=== PATIENT | female | born 1985 | race Caucasian/White ===

== ENCOUNTER 2020-09-09 19:15 | Inpatient (IN) | payer BC ==
[2020-09-09] MEDS ORDERED: Butorphanol Tartrate 1 MG/ML VIAL SLOW IVP PRN (20:30)
[2020-09-09] MEDS ORDERED: Promethazine HCl 25 MG/ML VIAL IM PRN (20:30)
[2020-09-09] MEDS ORDERED: Ondansetron PF 4 MG/2 ML Vial IVP PRN (20:30)
[2020-09-09] MEDS ORDERED: Acetaminophen 500 MG TAB PO PRN (20:30)
[2020-09-09] MEDS ORDERED: Ibuprofen 800 MG TAB PO PRN (20:30)
[2020-09-09] MEDS ORDERED: NS / Oxytocin 40 units/1000ml 1,000 ML IV PRN (20:30)
[2020-09-09] MEDS ORDERED: hydrALAZINE 20 MG/ML VIAL SLOW IVP PRN (20:30)
[2020-09-09] MEDS ORDERED: Lidocaine 1% (PF) 30 ML VIAL SC PRN (20:30)
[2020-09-09 21:45] VITALS: BMI 29.9
[2020-09-09] MEDS ORDERED: Misoprostol 100 MCG TAB ONE (21:52)
[2020-09-09 21:53] LABS: Hemoglobin 12.4 g/dL (12.0-15.5); Mean Corpuscular Hemoglobin 29.2 pg (27.0-33.0); Mean Corpuscular Volume 86.1 fl (81.6-98.3); Mean Platelet Volume 10.7 fl (7.4-10.4); Platelet Count 252 10x3/uL (150-450); RBC Distribution Width 13.2 % (11.5-14.5); Red Blood Cell (RBC) Count 4.24 10x6/uL (3.90-5.03); White Blood Cell (WBC) Count 11.5 10x3/uL (3.5-10.5)
[2020-09-09] MEDS ORDERED: Lactated Ringer's 1,000 ML IV SCH (22:00)
[2020-09-09] MEDS ORDERED: Misoprostol 100 MCG TAB PO SCH (22:00)
[2020-09-09 22:27] LABS: Hep B Surf Ag Non-Reactive S/CO (NonReactive)
[2020-09-09 22:28] LABS: Syphilis Antibody Nonreactive (Nonreactive); Syphilis Antibody Index 0.04 S/CO (<1.00 Non-Reactive)
[2020-09-09 23:11] LABS: HBSAg Index 0.16 S/CO (0-0.99)
[2020-09-10] MEDS ORDERED: Fentanyl 4 mcg/Bup 0.1% Cadd 100 ML ONE (01:54)
[2020-09-10] MEDS ORDERED: diphenhydrAMINE 50 MG/ML VIAL IVP PRN (02:45)
[2020-09-10] MEDS ORDERED: Fentanyl 4 mcg/Bupivacaine 0.1% Cassette 100 ML EPIDURAL SCH (02:45)
[2020-09-10] MEDS ORDERED: Hydrocerin (Eucerin) Cream 120 gm Jar TOP PRN (02:45)
[2020-09-10] MEDS ORDERED: Lactated Ringer's 500 ML IV PRN (02:45)
[2020-09-10] MEDS ORDERED: ePHEDrine 50 MG/ML VIAL SLOW IVP PRN (02:45)
[2020-09-10] MEDS ORDERED: Ondansetron PF 4 MG/2 ML Vial IVP PRN ×2 (02:45→12:00)
[2020-09-10] MEDS ORDERED: Communication Order-Pharmacy FS SCH (02:45)
[2020-09-10] MEDS ORDERED: Promethazine HCl 25 MG/ML VIAL IM PRN (02:45)
[2020-09-10] MEDS ORDERED: Naloxone HCl 0.4 mg/ml Vial IVP PRN ×2 (02:45)
[2020-09-10] MEDS ORDERED: Acetaminophen 325 MG TAB PO PRN (02:45)
[2020-09-10] MEDS: NS w/ Oxytocin 30 units 500 ML IV PRN ×2 (05:00→10:29)
[2020-09-10] MEDS ORDERED: Lanolin Ointment 7 GM TUBE TOP PRN (12:00)
[2020-09-10] MEDS ORDERED: hydrALAZINE 20 MG/ML VIAL SLOW IVP PRN (12:00)
[2020-09-10] MEDS ORDERED: Benzocaine-Menthol 82.5 ML CAN TOP PRN (12:00)
[2020-09-10] MEDS ORDERED: Bisacodyl 10 MG SUPP PR PRN (12:00)
[2020-09-10] MEDS ORDERED: Adacel (T-DAP) 0.5 ML SYRINGE IM ONE (12:00)
[2020-09-10] MEDS ORDERED: Methylergonovine 0.2 MG/ML VIAL IM PRN (12:00)
[2020-09-10] MEDS ORDERED: Docusate Calcium (SURFAK) 240 MG CAP PO SCH ×2 (12:00→12:15)
[2020-09-10] MEDS ORDERED: Acetaminophen/Codeine 30-300mg Tablet PO PRN (12:00)
[2020-09-10] MEDS ORDERED: Milk Of Magnesia 30 ML UDCUP PO PRN (12:00)
[2020-09-10] MEDS ORDERED: NS w/ Oxytocin 30 units 500 ML IV SCH (12:15)
[2020-09-10] MEDS ORDERED: Prenatal Vitamin 1 TAB PO SCH (12:30)
[2020-09-10] MEDS: HYDROcodone/Acetaminophen 5/325 mg Tablet PO PRN (18:23)
[2020-09-10] MEDS: Ferrous Sulfate 325 MG TAB PO SCH (18:30)
[2020-09-10] MEDS: Ibuprofen 800 MG TAB PO SCH ×2 (18:30→22:08)
[2020-09-10] MEDS: Docusate Calcium (SURFAK) 240 MG CAP PO SCH (22:00)
[2020-09-11] MEDS: HYDROcodone/Acetaminophen 5/325 mg Tablet PO PRN ×3 (01:37→12:00)
[2020-09-11 06:00] LABS: Hemoglobin 10.8 g/dL (12.0-15.5); Mean Corpuscular HGB CONC 33.2 g/dL (32.0-36.0); Mean Corpuscular Hemoglobin 29.5 pg (27.0-33.0); Mean Corpuscular Volume 88.8 fl (81.6-98.3); Mean Platelet Volume 10.8 fl (7.4-10.4); Platelet Count 215 10x3/uL (150-450); RBC Distribution Width 13.4 % (11.5-14.5); Red Blood Cell (RBC) Count 3.66 10x6/uL (3.90-5.03); White Blood Cell (WBC) Count 10.1 10x3/uL (3.5-10.5)
[2020-09-11] MEDS: Ibuprofen 800 MG TAB PO SCH (06:12)
[2020-09-11 07:52] VITALS: BP 118/65; TEMP 98.9
[2020-09-11] MEDS ORDERED: Prenatal Vitamin 1 TAB PO SCH (09:00)
[2020-09-11] MEDS: Docusate Calcium (SURFAK) 240 MG CAP PO SCH (09:06)
[2020-09-11] MEDS: Ferrous Sulfate 325 MG TAB PO SCH (09:12)
== END 2020-09-11 12:30 | disposition home or self-care (01) | DRG 807 ==
LOC: CSHLD 20:08 → CSHPP 09-10 10:45
PROVIDERS: ADMIT Obstetrics & Gynecology; ATTEND Obstetrics & Gynecology
PROC: 10E0XZZ Delivery of Products of Conception, External Approach (ICD-10-PCS; principal; 2020-09-10)
PROC: 0W8NXZZ Division of Female Perineum, External Approach (ICD-10-PCS; 2020-09-10)
DX: O66.0 Obstructed labor due to shoulder dystocia (principal); Z37.0 Single live birth; Z3A.39 39 weeks gestation of pregnancy
CPT/HCPCS: 36415; 51701; 51702; 85027; 86780; 86850; 86900; 86901; 87340; 88307; J2590

== ENCOUNTER 2021-12-24 08:17 | Outpatient (CLI) | payer BC ==
[2021-12-24 09:46] LABS: Hemoglobin 13.2 g/dL (12.0-15.5); Mean Corpuscular HGB CONC 33.9 g/dL (32.0-36.0); Mean Corpuscular Hemoglobin 29.6 pg (27.0-33.0); Mean Corpuscular Volume 87.2 fl (81.6-98.3); Mean Platelet Volume 10.3 fl (7.4-10.4); Platelet Count 273 10x3/uL (150-450); RBC Distribution Width 12.5 % (11.5-14.5); Red Blood Cell (RBC) Count 4.46 10x6/uL (3.90-5.03)
[2021-12-24 10:13] LABS: BHCG - Serum Negative (NEGATIVE); Pregs Control Background? CLEAR/WHITE (CLR/WHITE); Pregs Control Bar Appear? YES (CONTROL BAR)
[2021-12-24 10:23] LABS: Anion Gap 12 mmol/L (10-20); BUN (Urea Nitrogen) 14 mg/dL (7.0-18.7); Calc. Creatinine Clearance 0 mL/min (70-130); Calcium 9.1 mg/dL (7.8-10.44); Carbon Dioxide 25 mmol/L (22-29); Chloride 107 mmol/L (98-107); Estimated GFR 80; Glucose 87 mg/dL (70-105); Potassium 5.1 mmol/L (3.5-5.1); Sodium 139 mmol/L (136-145)
== END 2021-12-24 08:18 | disposition home or self-care (01) ==
LOC: CSHLAB 08:17
PROVIDERS: ATTEND Obstetrics & Gynecology
DX: Z01.812 Encounter for preprocedural laboratory examination (principal); Z20.822 Contact with and (suspected) exposure to COVID-19; N92.0 Excessive and frequent menstruation with regular cycle
CPT/HCPCS: 80048; 84703; 85027; 87811

== ENCOUNTER 2021-12-29 06:11 | Day surgery (SDC) | payer BC ==
[2021-12-25 10:37] VITALS: BMI 24.2
[2021-12-29] MEDS ORDERED: Lidocaine 1% MPF 2 ML VIAL ONE (07:20)
[2021-12-29] MEDS ORDERED: Fentanyl 100 MCG/2 ML VIAL ONE (08:11)
[2021-12-29] MEDS ORDERED: Midazolam HCl 2 mg/2 ml Vial ONE (08:11)
[2021-12-29] MEDS ORDERED: PROPOFOL 20 ML ONE (08:11)
[2021-12-29] MEDS ORDERED: Lidocaine 2% PF 5 ML VIAL ONE (08:12)
[2021-12-29] MEDS ORDERED: Ketorolac Tromethamine 30 MG/ML VIAL ONE (08:12)
[2021-12-29] MEDS ORDERED: Ondansetron PF 4 MG/2 ML Vial ONE (08:12)
[2021-12-29] MEDS ORDERED: Dexamethasone 20 MG/5 ML VIAL ONE (08:12)
[2021-12-29] MEDS ORDERED: CEFAZOLIN 2 GM VIAL ONE (08:20)
[2021-12-29] MEDS ORDERED: ePHEDrine Sulfate 50 MG/10 ML VIAL ONE (08:54)
== END 2021-12-29 10:24 | disposition home or self-care (01) ==
LOC: CSHSDC 06:11
PROVIDERS: ATTEND Obstetrics & Gynecology
PROC: 0U5B8ZZ Destruction of Endometrium, Via Natural or Artificial Opening Endoscopic (ICD-10-PCS; principal; 2021-12-29)
PROC: 0UDB8ZX Extraction of Endometrium, Via Natural or Artificial Opening Endoscopic, Diagnostic (ICD-10-PCS; principal; 2021-12-29)
DX: N92.0 Excessive and frequent menstruation with regular cycle (principal); N94.6 Dysmenorrhea, unspecified; N83.201 Unspecified ovarian cyst, right side; Z79.899 Other long term (current) drug therapy; Z98.890 Other specified postprocedural states; Z20.822 Contact with and (suspected) exposure to COVID-19
CPT/HCPCS: 88305; J0690; J1100; J1885; J2001; J2250; J2405; J2704; J3010